=== PATIENT | female | born 1955 | race Hispanic/Latino ===

== ENCOUNTER 2018-01-23 13:26 | Outpatient (CLI) | payer OTHER ==
--- NOTE | 2018-01-24 08:44 | Magnetic Resonance Report ---
MRI ABDOMEN WITHOUT AND WITH CONTRAST : 01/23/18 CLINICAL: History of breast cancer. COMPARISON :None. TECHNIQUE: Axial T1 in phase and opposed phase, coronal and axial T2 and axial T2 fat sat sequences plus multiphase postcontrast T1 fat sat sequences on a 1.5 Roxanna magnet. 20.0 cc of Multihance was injected intravenously for the contrast portion of the exam and consent was obtained prior to the administration of the contrast. FINDINGS: Normal liver contour and overall signal. The right lobe measures 20.7 cm in length but the left lobe is relatively small compared to the right lobe. Several benign hepatic cysts and no solid liver mass. The largest cyst is in the lateral segment of the left lobe and measures 5.3 x 3.8 cm. The largest right lobe cyst measures 2.8 x 2.0 cm. Normal gallbladder and intrahepatic bile ducts. The common bile duct is mildly dilated but there is no evidence choledocholithiasis. The common hepatic duct measures 6 mm diameter in the distal CBD measures 8 mm diameter. Normal pancreas and pancreatic duct. The portal vasculature and hepatic veins are normal. Normal inferior vena cava and aorta. Normal stomach, duodenum and spleen. The right adrenal gland is enlarged and oval relatively smooth mass measuring 2.5 cm AP dimension by 1.6 cm transverse dimension by 2.5 cm craniocaudal dimension. The mass is uniformly hypointense on T1 and T2, demonstrates uniform signal dropout on opposed phase imaging and demonstrates no enhancement. The left adrenal gland is normal. The kidneys are normal size with normal nondilated renal collecting systems and ureters. No ascites. The imaged portions of small bowel and colon are normal. No mass or lymphadenopathy. The bones have normal signal with no bone lesion identified. IMPRESSION: 1. Benign hepatic cysts and no liver mass. 2. Mild dilatation of the CBD with no evidence of pelvic cholelithiasis. This suggests a possible distal stricture of the CBD. 3. A benign 2.5 cm right adrenal adenoma. 4. No evidence of metastatic disease.
== END 2018-01-23 13:27 | disposition home or self-care (01) ==
LOC: SPVIMAG 13:26
PROVIDERS: ATTEND Internal Medicine Hematology & Oncology
DX: C50.312 Malignant neoplasm of lower-inner quadrant of left female breast (principal); K76.89 Other specified diseases of liver; E27.9 Disorder of adrenal gland, unspecified
CPT/HCPCS: 74183; A9577

== ENCOUNTER 2018-02-17 13:56 | Outpatient (CLI) | payer OTHER ==
--- NOTE | 2018-02-17 16:27 | XRay Report ---
XRAY LUMBAR SPINE WITH OBLIQUES 5 VIEWS: 02/17/18 13:56:00 CLINICAL: History of breast cancer. Back pain. FINDINGS: Mild levoscoliosis centered at L5-S1. Grade I L5-S1 retrolisthesis with loss of the disc space. The rest of the bodies are in normal alignment. Mild disc space narrowing at L4-5 and L3-4. Small anterior osteophytes at multiple levels. The pedicles are intact. No fracture. Left-sided neural foraminal narrowing at L4-5 and L5-S1. Moderate facet joint sclerosis at L5-S1. IMPRESSION: 1. Lower lumbar scoliosis with moderate degenerative disc disease and facet joint disease at L5-S1. 2. Grade I L5-S1 retrolisthesis reduces spinal canal stenosis at L5-S1. 3. No evidence of metastatic disease.
== END 2018-02-17 13:57 | disposition home or self-care (01) ==
LOC: SPVIMAG 13:56
PROVIDERS: ATTEND Nurse Practitioner
DX: M51.36 Other intervertebral disc degeneration, lumbar region (principal); M41.86 Other forms of scoliosis, lumbar region; M48.07 Spinal stenosis, lumbosacral region; C50.312 Malignant neoplasm of lower-inner quadrant of left female breast
CPT/HCPCS: 72110